=== PATIENT | male | born 1990 | race Caucasian/White ===

== ENCOUNTER 2025-03-11 19:43 | Emergency (ER) | payer OTHER ==
[2025-03-11] MEDS ORDERED: Proparacaine 0.5% Opth 15 ML BOT ONE (20:36)
[2025-03-11] MEDS ORDERED: Fluorescein Opthalmic Strip ONE ×2 (20:36→21:14)
== END 2025-03-11 21:42 | disposition home or self-care (01) ==
LOC: ERS 19:43
DX: T15.02XA Foreign body in cornea, left eye, initial encounter (principal); W44.8XXA Other foreign body entering into or through a natural orifice, initial encounter
CPT/HCPCS: 99282